=== PATIENT | male | born 1995 | race African-American/Black ===

== ENCOUNTER 2017-01-06 05:28 | Emergency (ER) | payer OTHER ==
--- NOTE | ~2017-01-06 | CT2 ---
[facility] A Service of [facility] RADIOLOGY TEXT RESULTS PATIENT: MAYURI CEDILLO LOCATION: [facility] : [birth year] UNIT #: [id number] AGE: [address]: Gabriel Baez MD SEX: M ORDER DR: [id number] [facility] [address] [place], [place] [address] [id number] E MR#: [id number] Acc #: [id number] NAME: MAYURI CEDILLO : 1995 SEX: M STUDY DATE/TIME: 01/06/2017 7:55 UNIT: [facility] ROOM: STUDY DESCRIPTION: CT Abd and Pelv W Cont Attending Physician: Gabriel Baez Ordering Physician: Markel Wilson D.O. Primary Care Physician: Franchesca Cifuentes M.D. MEDICAL IMAGING REPORT This report is preliminary unless electronic signature is present EXAM CT abdomen and pelvis with contrast INDICATION Gastroesophageal reflux and hematemesis today. PROCEDURE Contrast-enhanced CT of the abdomen and pelvis. 100 mL of Isovue-370. This CT examination was performed with one or more of the following radiation dose reduction techniques: automatic exposure control, adjustment of mA and/or kV according to patient size, and iterative reconstruction. COMPARISON None. FINDINGS ABDOMEN WITH CONTRAST: Included lung bases are clear. The liver, spleen, kidneys, adrenal glands, pancreas and gallbladder unremarkable. The bowel loops are nondilated. Appendix is normal. PELVIS WITH CONTRAST: No pelvic mass or fluid. No aggressive appearing bone lesion. IMPRESSION No acute findings in the abdomen or pelvis. Dictated by... Keyon Beebe M.D. THIS IS AN ELECTRONICALLY VERIFIED REPORT [facility] A Service [facility] RADIOLOGY TEXT RESULTS PATIENT: MAYURI CEDILLO LOCATION: [facility] : [birth year] UNIT #: [id number] AGE: [address]: Gabriel Baez MD SEX: M ORDER DR: Keyon Beebe M.D. at 01/07/2017 2:17 PM Telma TD: 01/06/2017 09:13 JOB #: [id number] MEDICAL IMAGING REPORT Page 1 of 1 COPY
--- NOTE | ~2017-01-06 | EKG ---
PATIENT: MAYURI CEDILLO UNIT #: [id number] Ventricular Rate: 66 BPM Atrial Rate: 66 BPM P-R Interval: 192 ms QRS Duration: 92 ms Q-T Interval: 392 ms QTC Calculation(Bezet): 410 ms P Taiban: 47 degrees Calculated R Taiban: 64 degrees Calculated T Taiban: 27 degrees Diagnosis Line: Sinus rhythm with marked sinus arrhythmia Diagnosis Line: Otherwise normal ECG Diagnosis Line: No previous ECGs available Diagnosis Line: Confirmed by LIONEL ADAME MD ([id number]) on Diagnosis Line: 01/06/2017 9:35:52 PM INTERPRETING MD: TESSA
[2017-01-06 05:31] LABS: BASOPHIL% 0.2 % (0-2.5); HEMATOCRIT 54.1 % (38.0-50.0); HEMOGLOBIN 17.9 gm/dL (13.0-16.0); LYMPHOCYTE% 11.5 % (17.0-45.0); MEAN CELL VOLUME 90.3 FL (83-96); MEAN CORPUSCULAR HEMOGLOBIN 29.9 PG (28-34); MEAN CORPUSCULAR HGB CONC 33.1 g/dL (30-36); MONOCYTE# 0.3 X10e3 (0-1.0); MONOCYTE% 3.9 % (3.0-12.0); NEUTROPHIL# 7.3 X10e3 (1.5-7.1); NEUTROPHIL% 84.4 % (40-75); PLATELET COUNT 239 X10e3 (140-420); RED BLOOD COUNT 5.99 X10e (3.90-5.60); RED CELL DISTRIBUTION WIDTH 13.7 % (11.0-15.5); WHITE BLOOD COUNT 8.6 X10e3 (4.0-10.5)
[2017-01-06 05:38] LABS: DIFF IND NO
[2017-01-06 05:45] LABS: PROTHROMBIN TIME (PATIENT) 10.5 SECONDS (9.6-11.5)
[2017-01-06 05:58] LABS: ALBUMIN SERUM 5.1 g/dL (3.5-5.0); BILIRUBIN, DIRECT 0.2 mg/dL (0.0-0.2); BILIRUBIN,TOTAL 1.2 mg/dL (0.2-2.0); CALCIUM SERUM 10.3 mg/dL (8.4-10.2); GLOM FILT RATE Estimated 122.4 mL/min (>60); POTASSIUM 3.6 mmol/L (3.5-5.1); PROTEIN TOTAL SERUM 8.8 g/dL (6.0-8.3)
[2017-01-06 06:47] LABS: URINE SOURCE CLEAN CATCH
[2017-01-06 06:54] LABS: URINE APPEARANCE CLEAR; URINE BILIRUBIN NEG (NEG); URINE BLOOD 1+ (NEG); URINE COLOR DK YELLOW; URINE GLUCOSE NEG (NEG); URINE KETONE 2+ (NEG); URINE LEUKOCYTE ESTERASE NEG (NEG); URINE NITRATE NEG (NEG); URINE PH 5.5 (5-8); URINE PROTEIN 2+ (NEG); URINE UROBILINOGEN 0.2 MG/DL (NEG)
[2017-01-06 06:57] LABS: URINE BACTERIA AUWI NEG (NEGATIVE); URINE SQUAMOUS EPITHELIAL CELL NONE SEEN /[HPF]
[2017-01-06 07:10] LABS: CULTURE INDICATED? NO
[2017-01-06 07:11] LABS: URINE MUCUS PRESENT
[2017-01-06 07:12] LABS: UWBCS1 AUWI 0-2 (0-5)
[2017-01-06 07:40] LABS: AMPHETAMINE NEG (NEG); BARBITURATES NEG (NEG); BENZODIAZEPINES NEG (NEG); COCAINE NEG (NEG); MARIJUANA POS (NEG); OPIATES NEG (NEG); TRICYCLIC ANTIDEPRESSANTS NEG (NEG); U METHADONE NEG (NEG)
== END 2017-01-06 09:24 | disposition home or self-care (01) ==
LOC: CED 05:28
PROVIDERS: Emergency Medicine
DX: R10.84 Generalized abdominal pain (principal); R11.2 Nausea with vomiting, unspecified; Z21 Asymptomatic human immunodeficiency virus [HIV] infection status; F17.200 Nicotine dependence, unspecified, uncomplicated; Z88.0 Allergy status to penicillin
CPT/HCPCS: 36415; 74177; 80048; 80076; 80307; 81003; 83690; 85025; 85610; 85730; 93005; 96361; 96374; 96375; 99284; C9113; J2405; Q9967

== ENCOUNTER 2017-03-02 02:45 | Emergency (ER) | payer OTHER ==
--- NOTE | ~2017-03-02 | CT2 ---
[facility] A Service of [facility] & [facility] RADIOLOGY TEXT RESULTS PATIENT: MAYURI CEDILLO LOCATION: [facility] : [birth year] UNIT #: [id number] AGE: [address]: Gabriel Baez MD SEX: M ORDER DR: [id number] [facility] [address] [place], [place] [address] [id number] E MR#: [id number] Acc #: [id number] NAME: MAYURI CEDILLO : 1995 SEX: M STUDY DATE/TIME: 03/02/2017 5:48 UNIT: [facility] ROOM: STUDY DESCRIPTION: CT Abd and Pelv W Cont Attending Physician: Keyon Baez M.D. Ordering Physician: Keyon Baez M.D. Primary Care Physician: Franchesca Cifuentes M.D. MEDICAL IMAGING REPORT This report is preliminary unless electronic signature is present EXAM CT abdomen and pelvis with IV contrast COMPARISON January 06, 2017. INDICATION 21-year-old male with generalized abdominal pain and emesis for [address] imaging of the abdomen and pelvis was performed after IV administration of 100 mL Isovue-370. Coronal and sagittal reformats were constructed. This CT examination was performed with one or more of the following radiation dose reduction techniques: automatic exposure control, adjustment of mA and/or kV according to patient size, and iterative reconstruction. There is a small hemangioma in the left acetabulum. This could alternatively represent a benign bone cyst. There is minimal levocurvature of the lumbar spine. No significant degenerative change. There are small posterior disc protrusions noted L3-L4, L4-L5. No acute fractures or suspicious osseous lesions. The liver, gallbladder, pancreas, spleen, adrenal glands and kidneys are within normal limits. No hydronephrosis or hydroureter. No evidence of renal or ureteral calculus. Urinary bladder and prostate gland are unremarkable. No evidence of bowel obstruction. Appendix is normal. No free fluid or pneumoperitoneum. Abdominal aorta is normal in course and caliber, with patency of its main branches. No evidence of venous thrombosis. No adenopathy. IMPRESSION 1. No acute abnormality in the abdomen, pelvis or imaged lower chest. 2. Mild multilevel disc protrusion of the lower lumbar spine. 3. 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 [facility]. [facility] A Service of [facility] & [facility] RADIOLOGY TEXT RESULTS PATIENT: MAYURI CEDILLO LOCATION: [facility] : [birth year] UNIT #: [id number] AGE: [address]: Gabriel Baez MD SEX: M ORDER DR: Dictated by... Khang Cedeno M.D. THIS IS AN ELECTRONICALLY VERIFIED REPORT Khang Cedeno M.D. at 03/07/2017 9:49 AM [place]/yakov TD: 03/02/2017 06:52 JOB #: [id number] MEDICAL IMAGING REPORT Page 1 of 1 COPY
[2017-03-02 04:12] LABS: BASOPHIL% 0.5 % (0-2.5); EOSINOPHIL% 0.4 % (0.0-7.0); HEMATOCRIT 58.1 % (38.0-50.0); HEMOGLOBIN 18.9 gm/dL (13.0-16.0); LYMPHOCYTE# 2.4 X10e3 (1.0-3.5); LYMPHOCYTE% 24.3 % (17.0-45.0); MEAN CELL VOLUME 91.3 FL (83-96); MEAN CORPUSCULAR HEMOGLOBIN 29.8 PG (28-34); MEAN CORPUSCULAR HGB CONC 32.6 g/dL (30-36); MEAN PLATELET VOLUME 9.1 FL (6.5-11.5); MONOCYTE# 0.5 X10e3 (0-1.0); MONOCYTE% 5.4 % (3.0-12.0); NEUTROPHIL# 6.7 X10e3 (1.5-7.1); NEUTROPHIL% 69.4 % (40-75); PLATELET COUNT 306 X10e3 (140-420); RED BLOOD COUNT 6.36 X10e (3.90-5.60); RED CELL DISTRIBUTION WIDTH 13.6 % (11.0-15.5); WHITE BLOOD COUNT 9.7 X10e3 (4.0-10.5)
[2017-03-02 04:14] LABS: DIFF IND NO
[2017-03-02 04:59] LABS: ALBUMIN SERUM 5.4 g/dL (3.5-5.0); BILIRUBIN, DIRECT 0.1 mg/dL (0.0-0.2); BILIRUBIN,INDIRECT 0.9 mg/dL (0.0-0.9); BUN/CREATININE RATIO 13.84; CALCIUM SERUM 9.8 mg/dL (8.4-10.2); CREATININE SERUM 1.3 mg/dL (0.6-1.4); GLOM FILT RATE Estimated 89.2 mL/min (>60); POTASSIUM 3.1 mmol/L (3.5-5.1); PROTEIN TOTAL SERUM 9.1 g/dL (6.0-8.3)
== END 2017-03-02 07:05 | disposition home or self-care (01) ==
LOC: CED 02:45
DX: R10.13 Epigastric pain (principal); F17.290 Nicotine dependence, other tobacco product, uncomplicated; Z88.0 Allergy status to penicillin
CPT/HCPCS: 36415; 74177; 80048; 80076; 83690; 85025; 96361; 96374; 96375; 99284; J2270; J2405; Q9967

== ENCOUNTER 2017-06-02 11:14 | Emergency (ER) | payer OTHER ==
[~2017-06-02] VITALS: Ht 170.2 cm; Wt 72.6 kg
[2017-06-02 13:19] LABS: BASOPHIL% 0.5 % (0-2.5); EOSINOPHIL% 0.2 % (0.0-7.0); HEMATOCRIT 56.6 % (38.0-50.0); LYMPHOCYTE# 1.5 X10e3 (1.0-3.5); LYMPHOCYTE% 26.6 % (17.0-45.0); MEAN CORPUSCULAR HEMOGLOBIN 29.9 PG (28-34); MEAN CORPUSCULAR HGB CONC 33.6 g/dL (30-36); MEAN PLATELET VOLUME 9.1 FL (6.5-11.5); MONOCYTE# 0.3 X10e3 (0-1.0); MONOCYTE% 5.7 % (3.0-12.0); NEUTROPHIL# 3.7 X10e3 (1.5-7.1); PLATELET COUNT 269 X10e3 (140-420); RED BLOOD COUNT 6.36 X10e (3.90-5.60); RED CELL DISTRIBUTION WIDTH 13.7 % (11.0-15.5); WHITE BLOOD COUNT 5.5 X10e3 (4.0-10.5)
[2017-06-02 13:20] LABS: DIFF IND NO
[2017-06-02 13:54] LABS: ALBUMIN SERUM 5.4 g/dL (3.5-5.0); BILIRUBIN, DIRECT 0.2 mg/dL (0.0-0.2); BILIRUBIN,INDIRECT 1.3 mg/dL (0.0-0.9); BILIRUBIN,TOTAL 1.5 mg/dL (0.2-2.0); CALCIUM SERUM 10.3 mg/dL (8.4-10.2); CREATININE SERUM 1.2 mg/dL (0.6-1.4); GLOM FILT RATE Estimated 97.5 mL/min (>60); POTASSIUM 3.4 mmol/L (3.5-5.1); PROTEIN TOTAL SERUM 9.2 g/dL (6.0-8.3)
== END 2017-06-02 15:06 | disposition home or self-care (01) ==
LOC: CED 11:14
PROVIDERS: Emergency Medicine
DX: R10.13 Epigastric pain (principal); R10.12 Left upper quadrant pain; E86.0 Dehydration; R11.2 Nausea with vomiting, unspecified; B20 Human immunodeficiency virus [HIV] disease; F17.200 Nicotine dependence, unspecified, uncomplicated; Z88.0 Allergy status to penicillin
CPT/HCPCS: 36415; 80048; 80076; 82150; 83690; 85025; 96374; 99284; J2405